=== PATIENT | female | born 1935 | race Caucasian/White ===

== ENCOUNTER 2018-11-21 13:48 | Inpatient (IN) | payer MEDICARE, OTHER ==
[~2018-11-21] VITALS: Ht 160 cm; Wt 50.8 kg
[2018-11-21 15:30] VITALS: BP 124/72
[2018-11-21] MEDS ORDERED: DOCUSATE SODIUM 283 MG/5 ML MINI-ENEMA PR PRN (17:15)
[2018-11-21] MEDS: ACETAMINOPHEN 325 MG TABLET PO PRN (18:51)
[2018-11-21] MEDS: SIMVASTATIN 20 MG TABLET PO SCH (21:11)
[2018-11-21] MEDS: SENNA 187 MG TABLET PO SCH (21:11)
[2018-11-21] MEDS: FLUDROCORTISONE ACETATE 0.1 MG TABLET PO SCH (21:11)
[2018-11-21] MEDS: DOCUSATE SODIUM 100 MG CAPSULE PO SCH (21:11)
[2018-11-21] MEDS: LACOSAMIDE 100 MG TABLET PO SCH (21:11)
[2018-11-21] MEDS: LevETIRAcetam 100 MG/ML 5 ML SOLUTION UDCUP PO SCH (21:12)
[2018-11-22 01:04] VITALS: BP 135/72
[2018-11-22 06:58] LABS: BASOPHILS % (AUTO) 1.4 % (0.0-2.0); EOSINOPHILS % (AUTO) 1.8 % (1.0-6.0); HEMOGLOBIN 9.2 g/dL (12.0-16.0); LYMPHOCYTES # (AUTO) 0.6 K/uL (1.0-4.8); LYMPHOCYTES % (AUTO) 20.5 % (22.0-44.0); MEAN CORPUSCULAR HGB CONC 35.2 G/dL (31.0-37.0); MEAN CORPUSCULAR VOLUME 97 fL (80-100); MONOCYTES # (AUTO) 0.4 K/uL (0.1-1.0); MONOCYTES % (AUTO) 11.5 % (2.0-9.0); NEUTROPHILS % (AUTO) 64.8 % (40.0-70.0); PLATELET COUNT (AUTO) 296 K/uL (150-450); RED BLOOD CELL COUNT(AUTO) 2.69 MIL/uL (4.00-5.20); RED CELL DISTRIBUTION WIDTH 14.3 % (11.5-14.5)
[2018-11-22 07:13] LABS: ALANINE AMINOTRANSFERASE 51 U/L (12-78); ALBUMIN 2.9 g/dL (3.4-5.0); ALKALINE PHOSPHATASE 80 U/L (46-116); ANION GAP 6 mmol/L (8-16); ASPARTATE AMINOTRANSFERASE 40 U/L (15-37); BILIRUBIN,TOTAL 0.6 mg/dL (0.1-1.0); CARBON DIOXIDE 29 mmol/L (22-29); CHLORIDE 104 mmol/L (98-107); CREATININE 0.52 mg/dL (0.60-1.30); GLUCOSE,RANDOM 122 mg/dL (70-110); POTASSIUM 3.5 mmol/L (3.5-5.1); SODIUM SERUM 139 mmol/L (136-145); TOTAL PROTEIN, SERUM 7.1 g/dL (6.4-8.2); UREA NITROGEN, BLOOD 18 mg/dL (7-18)
[2018-11-22 07:14] LABS: GLOMERULAR FILTR. RATE CALC > 60 mL/min (>60)
[2018-11-22 09:00] VITALS: BP 132/98
[2018-11-22] MEDS: MULTIVITAMINS, THERAPEUTIC TABLET PO SCH (09:07)
[2018-11-22] MEDS: POLYETHYLENE GLYCOL 3350 17 GM PACKET PO SCH (09:07)
[2018-11-22] MEDS: DOCUSATE SODIUM 100 MG CAPSULE PO SCH ×2 (09:07→20:40)
[2018-11-22] MEDS: AmLODIPine BESYLATE 2.5 MG TABLET PO SCH (09:08)
[2018-11-22] MEDS: LACOSAMIDE 100 MG TABLET PO SCH ×2 (09:08→20:40)
[2018-11-22] MEDS: DILTIAZEM HCL CD 120 MG ER CAPSULE PO SCH (09:09)
[2018-11-22] MEDS: LevETIRAcetam 100 MG/ML 5 ML SOLUTION UDCUP PO SCH ×2 (09:09→20:40)
[2018-11-22] MEDS: PANTOPRAZOLE SODIUM 40 MG DR TABLET PO SCH (09:14)
[2018-11-22] MEDS: FLUDROCORTISONE ACETATE 0.1 MG TABLET PO SCH ×2 (10:34→20:40)
[2018-11-22] MEDS ORDERED: FOSI20TA98 PO (13:36)
[2018-11-22] MEDS ORDERED: SIMV-260 PO (13:36)
[2018-11-22] MEDS ORDERED: PANT40TA25 PO (13:36)
[2018-11-22] MEDS ORDERED: AMLO2.5T4 PO (13:36)
[2018-11-22] MEDS ORDERED: CA C1TAB95 PO (13:36)
[2018-11-22 15:22] VITALS: BP 122/68
[2018-11-22] MEDS: SIMVASTATIN 20 MG TABLET PO SCH (20:40)
[2018-11-22] MEDS: SENNA 187 MG TABLET PO SCH (20:40)
[2018-11-22 21:04] LABS: APPEARANCE,URINE CLOUDY (CLEAR); BILIRUBIN,URINE NEGATIVE (NEGATIVE); GLUCOSE, URINE (UA) NEGATIVE (NEGATIVE); KETONES,URINE NEGATIVE (NEGATIVE); LEUKOCYTE ESTERASE ,URINE MODERATE (NEGATIVE); OCCULT BLOOD,URINE SMALL (NEGATIVE); PROTEIN,URINE NEGATIVE (NEGATIVE)
[2018-11-22 21:09] LABS: BACTERIA,URINE Many /HPF (None Seen); NITRATE,URINE POSITIVE (NEGATIVE); SQUAMOUS EPITHELIAL CELL,UR Moderate /LPF (None Seen); WBC,URINE 26-50 /HPF (0-5)
[2018-11-23] VITALS: BP 130/70
[2018-11-23 08:01] VITALS: BP 133/72
[2018-11-23] MEDS: DILTIAZEM HCL CD 120 MG ER CAPSULE PO SCH (08:02)
[2018-11-23] MEDS: POLYETHYLENE GLYCOL 3350 17 GM PACKET PO SCH (08:02)
[2018-11-23] MEDS: DOCUSATE SODIUM 100 MG CAPSULE PO SCH ×2 (08:03→20:07)
[2018-11-23] MEDS: LACOSAMIDE 100 MG TABLET PO SCH ×2 (08:03→20:07)
[2018-11-23] MEDS: MULTIVITAMINS, THERAPEUTIC TABLET PO SCH (08:03)
[2018-11-23] MEDS: LevETIRAcetam 100 MG/ML 5 ML SOLUTION UDCUP PO SCH ×2 (08:03→20:06)
[2018-11-23] MEDS: AmLODIPine BESYLATE 2.5 MG TABLET PO SCH (08:03)
[2018-11-23] MEDS: PANTOPRAZOLE SODIUM 40 MG DR TABLET PO SCH (08:03)
[2018-11-23] MEDS: FLUDROCORTISONE ACETATE 0.1 MG TABLET PO SCH ×2 (08:04→20:07)
[2018-11-23 15:57] VITALS: BP 109/64
[2018-11-23] MEDS ORDERED: MAGNESIUM HYDROXIDE SUSPENSION 30 ML UDCUP PO PRN (20:00)
[2018-11-23] MEDS: SIMVASTATIN 20 MG TABLET PO SCH (20:06)
[2018-11-23] MEDS: SENNA 187 MG TABLET PO SCH (20:07)
[2018-11-24] VITALS: BP 128/55
[2018-11-24 07:47] VITALS: BP 134/79
[2018-11-24] MEDS: LevETIRAcetam 100 MG/ML 5 ML SOLUTION UDCUP PO SCH ×2 (07:48→21:01)
[2018-11-24] MEDS: DOCUSATE SODIUM 100 MG CAPSULE PO SCH ×2 (07:48→21:02)
[2018-11-24] MEDS: FLUDROCORTISONE ACETATE 0.1 MG TABLET PO SCH ×2 (07:48→21:01)
[2018-11-24] MEDS: LACOSAMIDE 100 MG TABLET PO SCH ×2 (07:48→21:02)
[2018-11-24] MEDS: PANTOPRAZOLE SODIUM 40 MG DR TABLET PO SCH (07:48)
[2018-11-24] MEDS: SULFAMETHOX/TRIMETH DS 800-160 MG/TABLET PO SCH ×2 (07:48→21:02)
[2018-11-24] MEDS: POLYETHYLENE GLYCOL 3350 17 GM PACKET PO SCH (07:49)
[2018-11-24] MEDS: DILTIAZEM HCL CD 120 MG ER CAPSULE PO SCH (07:49)
[2018-11-24] MEDS: MULTIVITAMINS, THERAPEUTIC TABLET PO SCH (07:49)
[2018-11-24] MEDS: AmLODIPine BESYLATE 2.5 MG TABLET PO SCH (07:49)
[2018-11-24] MEDS ORDERED: MULTIVITAMINS WITH MINERALS, THERAPEUTIC TABLET PO SCH (09:00)
[2018-11-24 16:00] VITALS: BP 109/66
[2018-11-24] MEDS: SIMVASTATIN 20 MG TABLET PO SCH (21:01)
[2018-11-24] MEDS: SENNA 187 MG TABLET PO SCH (21:02)
[2018-11-24] MEDS: MELATONIN 3 MG TABLET PO PRN (22:02)
[2018-11-25] VITALS: BP 118/71
[2018-11-25 07:51] VITALS: BP 104/59
[2018-11-25] MEDS: POLYETHYLENE GLYCOL 3350 17 GM PACKET PO SCH (08:05)
[2018-11-25] MEDS: SULFAMETHOX/TRIMETH DS 800-160 MG/TABLET PO SCH ×2 (08:06→21:23)
[2018-11-25] MEDS: FLUDROCORTISONE ACETATE 0.1 MG TABLET PO SCH ×2 (08:06→21:23)
[2018-11-25] MEDS: AmLODIPine BESYLATE 2.5 MG TABLET PO SCH (08:06)
[2018-11-25] MEDS: PANTOPRAZOLE SODIUM 40 MG DR TABLET PO SCH (08:06)
[2018-11-25] MEDS: DOCUSATE SODIUM 100 MG CAPSULE PO SCH ×2 (08:06→21:23)
[2018-11-25] MEDS: MULTIVITAMINS, THERAPEUTIC TABLET PO SCH (08:06)
[2018-11-25] MEDS: DILTIAZEM HCL CD 120 MG ER CAPSULE PO SCH (08:07)
[2018-11-25] MEDS: LevETIRAcetam 100 MG/ML 5 ML SOLUTION UDCUP PO SCH ×2 (08:07→21:23)
[2018-11-25] MEDS: LACOSAMIDE 100 MG TABLET PO SCH ×2 (08:07→21:23)
[2018-11-25 16:03] VITALS: BP 121/77
[2018-11-25] MEDS: SENNA 187 MG TABLET PO SCH (21:23)
[2018-11-25] MEDS: SIMVASTATIN 20 MG TABLET PO SCH (21:23)
[2018-11-25] MEDS: MELATONIN 3 MG TABLET PO PRN (21:23)
[2018-11-26] VITALS: BP 128/67
[2018-11-26 07:42] VITALS: BP 121/70
[2018-11-26] MEDS: MULTIVITAMINS, THERAPEUTIC TABLET PO SCH (08:00)
[2018-11-26] MEDS: PANTOPRAZOLE SODIUM 40 MG DR TABLET PO SCH (08:00)
[2018-11-26] MEDS: FLUDROCORTISONE ACETATE 0.1 MG TABLET PO SCH ×2 (08:01→21:41)
[2018-11-26] MEDS: DILTIAZEM HCL CD 120 MG ER CAPSULE PO SCH (08:01)
[2018-11-26] MEDS: AmLODIPine BESYLATE 2.5 MG TABLET PO SCH (08:01)
[2018-11-26] MEDS: LACOSAMIDE 100 MG TABLET PO SCH ×2 (08:01→21:40)
[2018-11-26] MEDS: DOCUSATE SODIUM 100 MG CAPSULE PO SCH ×2 (08:01→21:41)
[2018-11-26] MEDS: LevETIRAcetam 100 MG/ML 5 ML SOLUTION UDCUP PO SCH ×2 (08:02→21:40)
[2018-11-26] MEDS: POLYETHYLENE GLYCOL 3350 17 GM PACKET PO SCH (09:00)
[2018-11-26] MEDS: NITROFURANTOIN/NITROFURAN MAC 100 MG CAPSULE [MACROBID] PO SCH ×2 (12:14→21:40)
[2018-11-26 15:46] VITALS: BP 128/60
[2018-11-26] MEDS: SENNA 187 MG TABLET PO SCH (21:40)
[2018-11-26] MEDS: SIMVASTATIN 20 MG TABLET PO SCH (21:40)
[2018-11-26] MEDS: MELATONIN 3 MG TABLET PO PRN (23:30)
[2018-11-27] VITALS: BP 140/79
[2018-11-27 07:37] VITALS: BP 143/88
[2018-11-27] MEDS: LevETIRAcetam 100 MG/ML 5 ML SOLUTION UDCUP PO SCH ×2 (08:03→21:32)
[2018-11-27] MEDS: DOCUSATE SODIUM 100 MG CAPSULE PO SCH ×2 (08:03→21:32)
[2018-11-27] MEDS: POLYETHYLENE GLYCOL 3350 17 GM PACKET PO SCH (08:03)
[2018-11-27] MEDS: AmLODIPine BESYLATE 2.5 MG TABLET PO SCH (08:04)
[2018-11-27] MEDS: LACOSAMIDE 100 MG TABLET PO SCH ×2 (08:04→21:33)
[2018-11-27] MEDS: DILTIAZEM HCL CD 120 MG ER CAPSULE PO SCH (08:04)
[2018-11-27] MEDS: MULTIVITAMINS, THERAPEUTIC TABLET PO SCH (08:04)
[2018-11-27] MEDS: PANTOPRAZOLE SODIUM 40 MG DR TABLET PO SCH (08:04)
[2018-11-27] MEDS: FLUDROCORTISONE ACETATE 0.1 MG TABLET PO SCH ×2 (08:04→21:33)
[2018-11-27] MEDS: NITROFURANTOIN/NITROFURAN MAC 100 MG CAPSULE [MACROBID] PO SCH ×2 (08:05→21:32)
[2018-11-27 15:33] VITALS: BP 105/62
[2018-11-27] MEDS: METOPROLOL TARTRATE 25 MG TABLET PO SCH (21:32)
[2018-11-27] MEDS: SENNA 187 MG TABLET PO SCH (21:33)
[2018-11-27] MEDS: SIMVASTATIN 20 MG TABLET PO SCH (21:33)
[2018-11-27] MEDS: MELATONIN 3 MG TABLET PO PRN (21:51)
[2018-11-28] VITALS: BP 120/66
[2018-11-28 07:15] VITALS: BP 129/68
[2018-11-28] MEDS: POLYETHYLENE GLYCOL 3350 17 GM PACKET PO SCH (08:38)
[2018-11-28] MEDS: LevETIRAcetam 100 MG/ML 5 ML SOLUTION UDCUP PO SCH ×2 (08:39→21:07)
[2018-11-28] MEDS: DOCUSATE SODIUM 100 MG CAPSULE PO SCH ×2 (08:39→21:07)
[2018-11-28] MEDS: AmLODIPine BESYLATE 2.5 MG TABLET PO SCH (08:39)
[2018-11-28] MEDS: METOPROLOL TARTRATE 25 MG TABLET PO SCH ×2 (08:40→21:08)
[2018-11-28] MEDS: FLUDROCORTISONE ACETATE 0.1 MG TABLET PO SCH ×2 (08:40→21:08)
[2018-11-28] MEDS: NITROFURANTOIN/NITROFURAN MAC 100 MG CAPSULE [MACROBID] PO SCH ×2 (08:40→21:07)
[2018-11-28] MEDS: MULTIVITAMINS, THERAPEUTIC TABLET PO SCH (08:40)
[2018-11-28] MEDS: PANTOPRAZOLE SODIUM 40 MG DR TABLET PO SCH (08:40)
[2018-11-28] MEDS: LACOSAMIDE 100 MG TABLET PO SCH ×2 (08:41→21:07)
[2018-11-28 16:13] VITALS: BP 121/68
[2018-11-28] MEDS: MELATONIN 3 MG TABLET PO SCH (21:07)
[2018-11-28] MEDS: SENNA 187 MG TABLET PO SCH (21:07)
[2018-11-28] MEDS: SIMVASTATIN 20 MG TABLET PO SCH (21:07)
[2018-11-29] VITALS: BP 128/72
[2018-11-29 06:23] LABS: ANION GAP 5 mmol/L (8-16); CALCIUM, TOTAL 8.9 mg/dL (8.8-10.5); CARBON DIOXIDE 34 mmol/L (22-29); CHLORIDE 102 mmol/L (98-107); CREATININE 0.53 mg/dL (0.60-1.30); GLUCOSE,RANDOM 107 mg/dL (70-110); SODIUM SERUM 141 mmol/L (136-145); UREA NITROGEN, BLOOD 11 mg/dL (7-18)
[2018-11-29 06:49] LABS: GLOMERULAR FILTR. RATE CALC > 60 mL/min (>60); POTASSIUM 2.7 mmol/L (3.5-5.1)
[2018-11-29 07:32] VITALS: BP 127/73
[2018-11-29 07:32] LABS: BASOPHILS % (AUTO) 1.5 % (0.0-2.0); EOSINOPHILS % (AUTO) 1.9 % (1.0-6.0); HEMATOCRIT 29.4 % (36-46); HEMOGLOBIN 10.2 g/dL (12.0-16.0); LYMPHOCYTES # (AUTO) 0.9 K/uL (1.0-4.8); MEAN CORPUSCULAR HGB CONC 34.7 G/dL (31.0-37.0); MEAN CORPUSCULAR VOLUME 95 fL (80-100); MONOCYTES # (AUTO) 0.3 K/uL (0.1-1.0); MONOCYTES % (AUTO) 11.9 % (2.0-9.0); NEUTROPHILS % (AUTO) 43.7 % (40.0-70.0); PLATELET COUNT (AUTO) 245 K/uL (150-450); RED CELL DISTRIBUTION WIDTH 14.1 % (11.5-14.5)
[2018-11-29] MEDS: NITROFURANTOIN/NITROFURAN MAC 100 MG CAPSULE [MACROBID] PO SCH ×2 (07:52→21:04)
[2018-11-29] MEDS: LevETIRAcetam 100 MG/ML 5 ML SOLUTION UDCUP PO SCH ×2 (07:52→21:04)
[2018-11-29] MEDS: POLYETHYLENE GLYCOL 3350 17 GM PACKET PO SCH (07:52)
[2018-11-29] MEDS: DOCUSATE SODIUM 100 MG CAPSULE PO SCH ×2 (07:52→21:04)
[2018-11-29] MEDS: PANTOPRAZOLE SODIUM 40 MG DR TABLET PO SCH (07:53)
[2018-11-29] MEDS: FLUDROCORTISONE ACETATE 0.1 MG TABLET PO SCH ×2 (07:53→21:04)
[2018-11-29] MEDS: LACOSAMIDE 100 MG TABLET PO SCH ×2 (07:53→21:04)
[2018-11-29] MEDS: AmLODIPine BESYLATE 2.5 MG TABLET PO SCH (07:53)
[2018-11-29] MEDS: METOPROLOL TARTRATE 25 MG TABLET PO SCH ×2 (07:53→21:04)
[2018-11-29] MEDS: MULTIVITAMINS, THERAPEUTIC TABLET PO SCH (07:53)
[2018-11-29] MEDS ORDERED: SODIUM CHLORIDE 0.9% 250 ML IV ONE (09:26)
[2018-11-29] MEDS: POTASSIUM CHL 10 MEQ/WATER 50 ML IV PRN ×5 (10:14→23:10)
[2018-11-29] MEDS: 0.9% SODIUM CHLORIDE 10 ML SYRINGE IVP SCH ×2 (16:09→23:11)
[2018-11-29 17:59] VITALS: BP 102/66
[2018-11-29 21:02] VITALS: BP 129/78
[2018-11-29] MEDS: MELATONIN 3 MG TABLET PO SCH (21:04)
[2018-11-29] MEDS: SENNA 187 MG TABLET PO SCH (21:04)
[2018-11-29] MEDS: SIMVASTATIN 20 MG TABLET PO SCH (21:04)
[2018-11-30] MEDS: POTASSIUM CHL 10 MEQ/WATER 50 ML IV PRN ×2 (00:38→01:57)
[2018-11-30 01:40] VITALS: BP 129/79
[2018-11-30 05:56] LABS: EOSINOPHILS % (AUTO) 1.5 % (1.0-6.0); HEMATOCRIT 25.5 % (36-46); HEMOGLOBIN 8.9 g/dL (12.0-16.0); LYMPHOCYTES # (AUTO) 0.7 K/uL (1.0-4.8); LYMPHOCYTES % (AUTO) 26.6 % (22.0-44.0); MEAN CORPUSCULAR HEMOGLOBIN 32.7 pg (26.0-34.0); MEAN CORPUSCULAR VOLUME 94 fL (80-100); MONOCYTES # (AUTO) 0.3 K/uL (0.1-1.0); MONOCYTES % (AUTO) 12.2 % (2.0-9.0); NEUTROPHILS # (AUTO) 1.6 K/uL (1.8-7.7); NEUTROPHILS % (AUTO) 58.7 % (40.0-70.0); PLATELET COUNT (AUTO) 193 K/uL (150-450); RED BLOOD CELL COUNT(AUTO) 2.73 MIL/uL (4.00-5.20); RED CELL DISTRIBUTION WIDTH 14.1 % (11.5-14.5)
[2018-11-30 06:11] LABS: ANION GAP 5 mmol/L (8-16); CALCIUM, TOTAL 8.6 mg/dL (8.8-10.5); CARBON DIOXIDE 33 mmol/L (22-29); CHLORIDE 102 mmol/L (98-107); GLUCOSE,RANDOM 110 mg/dL (70-110); POTASSIUM 3.2 mmol/L (3.5-5.1); SODIUM SERUM 140 mmol/L (136-145); UREA NITROGEN, BLOOD 12 mg/dL (7-18)
[2018-11-30 06:50] LABS: GLOMERULAR FILTR. RATE CALC > 60 mL/min (>60)
[2018-11-30] MEDS: MULTIVITAMINS, THERAPEUTIC TABLET PO SCH (08:01)
[2018-11-30] MEDS: POTASSIUM CHLORIDE 20 MEQ ER TABLET PO PRN (08:01)
[2018-11-30] MEDS: LevETIRAcetam 100 MG/ML 5 ML SOLUTION UDCUP PO SCH ×2 (08:01→20:47)
[2018-11-30] MEDS: NITROFURANTOIN/NITROFURAN MAC 100 MG CAPSULE [MACROBID] PO SCH ×2 (08:01→20:47)
[2018-11-30] MEDS: PANTOPRAZOLE SODIUM 40 MG DR TABLET PO SCH (08:01)
[2018-11-30] MEDS: FLUDROCORTISONE ACETATE 0.1 MG TABLET PO SCH ×2 (08:01→20:47)
[2018-11-30] MEDS: LACOSAMIDE 100 MG TABLET PO SCH ×2 (08:02→20:48)
[2018-11-30] MEDS: AmLODIPine BESYLATE 2.5 MG TABLET PO SCH (08:02)
[2018-11-30] MEDS: METOPROLOL TARTRATE 25 MG TABLET PO SCH ×2 (08:06→20:47)
[2018-11-30] MEDS: DOCUSATE SODIUM 100 MG CAPSULE PO SCH ×2 (08:15→20:47)
[2018-11-30] MEDS: POLYETHYLENE GLYCOL 3350 17 GM PACKET PO SCH (08:15)
[2018-11-30] MEDS: 0.9% SODIUM CHLORIDE 10 ML SYRINGE IVP SCH ×3 (08:19→23:54)
[2018-11-30 08:26] VITALS: BP 118/78
[2018-11-30] MEDS ORDERED: POTASSIUM CHLORIDE 20 MEQ ER TABLET PO ONE (13:30)
[2018-11-30 16:04] VITALS: BP 118/68
[2018-11-30 20:45] VITALS: BP 124/71
[2018-11-30] MEDS: SIMVASTATIN 20 MG TABLET PO SCH (20:47)
[2018-11-30] MEDS: SENNA 187 MG TABLET PO SCH (20:47)
[2018-11-30] MEDS: MELATONIN 3 MG TABLET PO SCH (20:47)
[2018-12-01 03:30] VITALS: BP 148/71
[2018-12-01 07:30] VITALS: BP 135/76
[2018-12-01] MEDS: PANTOPRAZOLE SODIUM 40 MG DR TABLET PO SCH (07:54)
[2018-12-01] MEDS: METOPROLOL TARTRATE 25 MG TABLET PO SCH ×2 (07:54→21:15)
[2018-12-01] MEDS: MULTIVITAMINS, THERAPEUTIC TABLET PO SCH (07:54)
[2018-12-01] MEDS: FLUDROCORTISONE ACETATE 0.1 MG TABLET PO SCH ×2 (07:54→21:15)
[2018-12-01] MEDS: LevETIRAcetam 100 MG/ML 5 ML SOLUTION UDCUP PO SCH ×2 (07:54→21:15)
[2018-12-01] MEDS: AmLODIPine BESYLATE 2.5 MG TABLET PO SCH (07:54)
[2018-12-01] MEDS: 0.9% SODIUM CHLORIDE 10 ML SYRINGE IVP SCH ×3 (07:55→23:43)
[2018-12-01] MEDS: NITROFURANTOIN/NITROFURAN MAC 100 MG CAPSULE [MACROBID] PO SCH (07:55)
[2018-12-01] MEDS: LACOSAMIDE 100 MG TABLET PO SCH ×2 (07:55→21:15)
[2018-12-01] MEDS: POTASSIUM CHLORIDE 20 MEQ ER TABLET PO PRN (07:57)
[2018-12-01] MEDS: DOCUSATE SODIUM 100 MG CAPSULE PO SCH ×2 (09:00→21:15)
[2018-12-01] MEDS: POLYETHYLENE GLYCOL 3350 17 GM PACKET PO SCH (09:00)
[2018-12-01 16:15] VITALS: BP 137/70
[2018-12-01 21:14] VITALS: BP 144/85
[2018-12-01] MEDS: SENNA 187 MG TABLET PO SCH (21:15)
[2018-12-01] MEDS: SIMVASTATIN 20 MG TABLET PO SCH (21:15)
[2018-12-01] MEDS: MELATONIN 3 MG TABLET PO SCH (21:15)
[2018-12-02] VITALS: BP 133/67
[2018-12-02 05:54] LABS: HEMATOCRIT 25.6 % (36-46); HEMOGLOBIN 8.8 g/dL (12.0-16.0); LYMPHOCYTES # (AUTO) 0.7 K/uL (1.0-4.8); LYMPHOCYTES % (AUTO) 28.1 % (22.0-44.0); MEAN CORPUSCULAR HGB CONC 34.4 G/dL (31.0-37.0); MEAN CORPUSCULAR VOLUME 93 fL (80-100); MONOCYTES # (AUTO) 0.3 K/uL (0.1-1.0); MONOCYTES % (AUTO) 11.9 % (2.0-9.0); NEUTROPHILS # (AUTO) 1.5 K/uL (1.8-7.7); PLATELET COUNT (AUTO) 179 K/uL (150-450); RED BLOOD CELL COUNT(AUTO) 2.76 MIL/uL (4.00-5.20); RED CELL DISTRIBUTION WIDTH 14.7 % (11.5-14.5)
[2018-12-02 06:05] LABS: ANION GAP 5 mmol/L (8-16); CARBON DIOXIDE 32 mmol/L (22-29); CHLORIDE 102 mmol/L (98-107); CREATININE 0.57 mg/dL (0.60-1.30); GLOMERULAR FILTR. RATE CALC > 60 mL/min (>60); GLUCOSE,RANDOM 123 mg/dL (70-110); POTASSIUM 3.4 mmol/L (3.5-5.1); SODIUM SERUM 139 mmol/L (136-145); UREA NITROGEN, BLOOD 12 mg/dL (7-18)
[2018-12-02] MEDS: POLYETHYLENE GLYCOL 3350 17 GM PACKET PO SCH (08:01)
[2018-12-02] MEDS: MULTIVITAMINS, THERAPEUTIC TABLET PO SCH (08:01)
[2018-12-02] MEDS: LevETIRAcetam 100 MG/ML 5 ML SOLUTION UDCUP PO SCH ×2 (08:01→20:50)
[2018-12-02] MEDS: PANTOPRAZOLE SODIUM 40 MG DR TABLET PO SCH (08:02)
[2018-12-02] MEDS: DOCUSATE SODIUM 100 MG CAPSULE PO SCH ×2 (08:02→20:50)
[2018-12-02] MEDS: METOPROLOL TARTRATE 25 MG TABLET PO SCH ×2 (08:02→20:50)
[2018-12-02] MEDS: FLUDROCORTISONE ACETATE 0.1 MG TABLET PO SCH ×2 (08:02→20:50)
[2018-12-02] MEDS: POTASSIUM CHLORIDE 20 MEQ ER TABLET PO SCH (08:02)
[2018-12-02] MEDS: AmLODIPine BESYLATE 2.5 MG TABLET PO SCH (08:02)
[2018-12-02] MEDS: LACOSAMIDE 100 MG TABLET PO SCH ×2 (08:03→20:50)
[2018-12-02 08:53] VITALS: BP 132/89
[2018-12-02 16:12] VITALS: BP 129/68
[2018-12-02 20:46] VITALS: BP 122/57
[2018-12-02] MEDS: SIMVASTATIN 20 MG TABLET PO SCH (20:50)
[2018-12-02] MEDS: MELATONIN 3 MG TABLET PO SCH (20:50)
[2018-12-02] MEDS: SENNA 187 MG TABLET PO SCH (20:50)
[2018-12-03 00:20] VITALS: BP 127/77
[2018-12-03 07:28] VITALS: BP 138/56
[2018-12-03] MEDS: LACOSAMIDE 100 MG TABLET PO SCH ×2 (08:00→21:01)
[2018-12-03] MEDS: PANTOPRAZOLE SODIUM 40 MG DR TABLET PO SCH (08:00)
[2018-12-03] MEDS: METOPROLOL TARTRATE 25 MG TABLET PO SCH ×2 (08:00→21:00)
[2018-12-03] MEDS: DOCUSATE SODIUM 100 MG CAPSULE PO SCH ×2 (08:00→21:00)
[2018-12-03] MEDS: FLUDROCORTISONE ACETATE 0.1 MG TABLET PO SCH ×2 (08:00→21:00)
[2018-12-03] MEDS: POTASSIUM CHLORIDE 20 MEQ ER TABLET PO SCH (08:00)
[2018-12-03] MEDS: AmLODIPine BESYLATE 2.5 MG TABLET PO SCH (08:00)
[2018-12-03] MEDS: LevETIRAcetam 100 MG/ML 5 ML SOLUTION UDCUP PO SCH ×2 (08:00→20:59)
[2018-12-03] MEDS: MULTIVITAMINS, THERAPEUTIC TABLET PO SCH (08:01)
[2018-12-03] MEDS: POLYETHYLENE GLYCOL 3350 17 GM PACKET PO SCH (08:01)
[2018-12-03 16:00] VITALS: BP 109/57
[2018-12-03 20:19] LABS: APPEARANCE,URINE CLOUDY (CLEAR); BILIRUBIN,URINE NEGATIVE (NEGATIVE); GLUCOSE, URINE (UA) NEGATIVE (NEGATIVE); KETONES,URINE NEGATIVE (NEGATIVE); LEUKOCYTE ESTERASE ,URINE MODERATE (NEGATIVE); NITRATE,URINE POSITIVE (NEGATIVE); OCCULT BLOOD,URINE TRACE (NEGATIVE); PROTEIN,URINE NEGATIVE (NEGATIVE)
[2018-12-03 20:43] LABS: BACTERIA,URINE Many /HPF (None Seen); RBC,URINE 0-2 /HPF (0-2); SQUAMOUS EPITHELIAL CELL,UR Moderate /LPF (None Seen)
[2018-12-03 20:44] LABS: CALCIUM OXALATE CRYSTALS,UR Moderate /LPF (None Seen)
[2018-12-03 20:54] VITALS: BP 127/72
[2018-12-03] MEDS: MELATONIN 3 MG TABLET PO SCH (20:59)
[2018-12-03] MEDS: SENNA 187 MG TABLET PO SCH (21:00)
[2018-12-03] MEDS: SIMVASTATIN 20 MG TABLET PO SCH (21:00)
[2018-12-03 23:45] VITALS: BP 145/83
[2018-12-04] MEDS: ACETAMINOPHEN 325 MG TABLET PO PRN (00:52)
[2018-12-04 06:59] LABS: EOSINOPHILS % (AUTO) 1.8 % (1.0-6.0); HEMATOCRIT 25.7 % (36-46); LYMPHOCYTES # (AUTO) 0.9 K/uL (1.0-4.8); LYMPHOCYTES % (AUTO) 33.6 % (22.0-44.0); MEAN CORPUSCULAR VOLUME 91 fL (80-100); MONOCYTES # (AUTO) 0.3 K/uL (0.1-1.0); MONOCYTES % (AUTO) 11.3 % (2.0-9.0); NEUTROPHILS # (AUTO) 1.3 K/uL (1.8-7.7); NEUTROPHILS % (AUTO) 52.3 % (40.0-70.0); PLATELET COUNT (AUTO) 163 K/uL (150-450); RED BLOOD CELL COUNT(AUTO) 2.81 MIL/uL (4.00-5.20); RED CELL DISTRIBUTION WIDTH 14.6 % (11.5-14.5)
[2018-12-04 07:11] VITALS: BP 175/69
[2018-12-04 07:24] LABS: ANION GAP 3 mmol/L (8-16); CALCIUM, TOTAL 8.8 mg/dL (8.8-10.5); CARBON DIOXIDE 31 mmol/L (22-29); CHLORIDE 104 mmol/L (98-107); CREATININE 0.54 mg/dL (0.60-1.30); GLUCOSE,RANDOM 97 mg/dL (70-110); POTASSIUM 3.4 mmol/L (3.5-5.1); SODIUM SERUM 138 mmol/L (136-145); UREA NITROGEN, BLOOD 13 mg/dL (7-18)
[2018-12-04 07:28] LABS: GLOMERULAR FILTR. RATE CALC > 60 mL/min (>60)
[2018-12-04] MEDS: AmLODIPine BESYLATE 2.5 MG TABLET PO SCH (07:42)
[2018-12-04] MEDS: METOPROLOL TARTRATE 25 MG TABLET PO SCH ×2 (07:42→20:31)
[2018-12-04] MEDS: FLUDROCORTISONE ACETATE 0.1 MG TABLET PO SCH ×2 (07:42→20:31)
[2018-12-04] MEDS: LACOSAMIDE 100 MG TABLET PO SCH ×2 (07:42→20:31)
[2018-12-04] MEDS: POTASSIUM CHLORIDE 20 MEQ ER TABLET PO SCH (07:42)
[2018-12-04] MEDS: DOCUSATE SODIUM 100 MG CAPSULE PO SCH ×2 (07:42→20:31)
[2018-12-04] MEDS: PANTOPRAZOLE SODIUM 40 MG DR TABLET PO SCH (07:42)
[2018-12-04] MEDS: LevETIRAcetam 100 MG/ML 5 ML SOLUTION UDCUP PO SCH ×2 (07:43→20:31)
[2018-12-04] MEDS: POLYETHYLENE GLYCOL 3350 17 GM PACKET PO SCH (07:44)
[2018-12-04] MEDS: MULTIVITAMINS, THERAPEUTIC TABLET PO SCH (07:44)
[2018-12-04 10:05] VITALS: BP 106/72
[2018-12-04 16:01] VITALS: BP 107/60
[2018-12-04 20:27] VITALS: BP 120/64
[2018-12-04] MEDS: SENNA 187 MG TABLET PO SCH (20:31)
[2018-12-04] MEDS: MELATONIN 3 MG TABLET PO SCH (20:31)
[2018-12-04] MEDS: SIMVASTATIN 20 MG TABLET PO SCH (20:31)
[2018-12-05] VITALS: BP 123/70
[2018-12-05 07:45] VITALS: BP 147/83
[2018-12-05] MEDS: POLYETHYLENE GLYCOL 3350 17 GM PACKET PO SCH (07:59)
[2018-12-05] MEDS: LevETIRAcetam 100 MG/ML 5 ML SOLUTION UDCUP PO SCH ×2 (07:59→20:32)
[2018-12-05] MEDS: PANTOPRAZOLE SODIUM 40 MG DR TABLET PO SCH (08:00)
[2018-12-05] MEDS: METOPROLOL TARTRATE 25 MG TABLET PO SCH ×2 (08:00→20:32)
[2018-12-05] MEDS: DOCUSATE SODIUM 100 MG CAPSULE PO SCH ×2 (08:00→20:32)
[2018-12-05] MEDS: AmLODIPine BESYLATE 2.5 MG TABLET PO SCH (08:00)
[2018-12-05] MEDS: POTASSIUM CHLORIDE 20 MEQ ER TABLET PO SCH (08:01)
[2018-12-05] MEDS: MULTIVITAMINS, THERAPEUTIC TABLET PO SCH (08:01)
[2018-12-05] MEDS: FLUDROCORTISONE ACETATE 0.1 MG TABLET PO SCH ×2 (08:01→20:32)
[2018-12-05] MEDS: LACOSAMIDE 100 MG TABLET PO SCH ×2 (08:02→20:32)
[2018-12-05] MEDS ORDERED: POTASSIUM CHLORIDE 10 MEQ ER TABLET PO ONE (13:00)
[2018-12-05 16:01] VITALS: BP 110/69
[2018-12-05 20:30] VITALS: BP 149/76
[2018-12-05] MEDS: SIMVASTATIN 20 MG TABLET PO SCH (20:32)
[2018-12-05] MEDS: SENNA 187 MG TABLET PO SCH (20:32)
[2018-12-05] MEDS: MELATONIN 3 MG TABLET PO SCH (20:32)
[2018-12-06 00:41] VITALS: BP 149/69
[2018-12-06] MEDS: ACETAMINOPHEN 325 MG TABLET PO PRN (01:13)
[2018-12-06 08:05] VITALS: BP 148/72
[2018-12-06] MEDS: LevETIRAcetam 100 MG/ML 5 ML SOLUTION UDCUP PO SCH ×2 (08:06→22:00)
[2018-12-06] MEDS: POLYETHYLENE GLYCOL 3350 17 GM PACKET PO SCH (08:06)
[2018-12-06] MEDS: FLUDROCORTISONE ACETATE 0.1 MG TABLET PO SCH ×2 (08:07→22:00)
[2018-12-06] MEDS: LACOSAMIDE 100 MG TABLET PO SCH ×2 (08:07→22:00)
[2018-12-06] MEDS: AmLODIPine BESYLATE 2.5 MG TABLET PO SCH (08:07)
[2018-12-06] MEDS: PANTOPRAZOLE SODIUM 40 MG DR TABLET PO SCH (08:07)
[2018-12-06] MEDS: DOCUSATE SODIUM 100 MG CAPSULE PO SCH ×2 (08:07→22:00)
[2018-12-06] MEDS: POTASSIUM CHLORIDE 20 MEQ ER TABLET PO SCH (08:07)
[2018-12-06] MEDS: METOPROLOL TARTRATE 25 MG TABLET PO SCH ×2 (08:07→22:00)
[2018-12-06] MEDS: MULTIVITAMINS, THERAPEUTIC TABLET PO SCH (08:08)
[2018-12-06 08:33] LABS: ANION GAP 7 mmol/L (8-16); CARBON DIOXIDE 29 mmol/L (22-29); CHLORIDE 103 mmol/L (98-107); CREATININE 0.57 mg/dL (0.60-1.30); GLUCOSE,RANDOM 97 mg/dL (70-110); POTASSIUM 3.4 mmol/L (3.5-5.1); SODIUM SERUM 139 mmol/L (136-145); UREA NITROGEN, BLOOD 13 mg/dL (7-18)
[2018-12-06 08:34] LABS: BASOPHILS % (AUTO) 1.4 % (0.0-2.0); EOSINOPHILS % (AUTO) 1.9 % (1.0-6.0); HEMOGLOBIN 9.2 g/dL (12.0-16.0); LYMPHOCYTES # (AUTO) 0.7 K/uL (1.0-4.8); LYMPHOCYTES % (AUTO) 29.3 % (22.0-44.0); MEAN CORPUSCULAR HEMOGLOBIN 31.7 pg (26.0-34.0); MEAN CORPUSCULAR HGB CONC 34.3 G/dL (31.0-37.0); MEAN CORPUSCULAR VOLUME 93 fL (80-100); MONOCYTES # (AUTO) 0.2 K/uL (0.1-1.0); MONOCYTES % (AUTO) 9.7 % (2.0-9.0); NEUTROPHILS # (AUTO) 1.5 K/uL (1.8-7.7); NEUTROPHILS % (AUTO) 57.7 % (40.0-70.0); PLATELET COUNT (AUTO) 147 K/uL (150-450); RED BLOOD CELL COUNT(AUTO) 2.91 MIL/uL (4.00-5.20)
[2018-12-06 08:36] LABS: GLOMERULAR FILTR. RATE CALC > 60 mL/min (>60)
[2018-12-06] MEDS ORDERED: DSS100 PO (10:17)
[2018-12-06] MEDS ORDERED: LACO100 PO (10:23)
[2018-12-06] MEDS ORDERED: FLUD.1 PO (10:23)
[2018-12-06] MEDS ORDERED: METO25 PO (10:23)
[2018-12-06] MEDS ORDERED: SIMV-260 PO (10:23)
[2018-12-06] MEDS ORDERED: PANT40TA25 PO (10:23)
[2018-12-06] MEDS ORDERED: LEVE500T53 PO (10:23)
[2018-12-06] MEDS ORDERED: AMLO2.5T4 PO (10:23)
[2018-12-06] MEDS ORDERED: KDUR20 PO (10:23)
[2018-12-06] MEDS ORDERED: MELA3TAB66 PO (10:23)
[2018-12-06] MEDS ORDERED: MULT-1203 PO (10:23)
[2018-12-06] MEDS ORDERED: POLY17PO PO (10:23)
[2018-12-06 16:00] VITALS: BP 119/79
[2018-12-06 20:22] VITALS: BP 134/71
[2018-12-06] MEDS: MELATONIN 3 MG TABLET PO SCH (22:00)
[2018-12-06] MEDS: SIMVASTATIN 20 MG TABLET PO SCH (22:00)
[2018-12-06] MEDS: SENNA 187 MG TABLET PO SCH (22:01)
[2018-12-07] VITALS: BP 146/72
[2018-12-07] MEDS: ACETAMINOPHEN 325 MG TABLET PO PRN (02:25)
[2018-12-07 07:50] VITALS: BP 152/78
[2018-12-07] MEDS: POLYETHYLENE GLYCOL 3350 17 GM PACKET PO SCH (09:00)
[2018-12-07] MEDS: AmLODIPine BESYLATE 2.5 MG TABLET PO SCH (09:01)
[2018-12-07] MEDS: METOPROLOL TARTRATE 25 MG TABLET PO SCH (09:01)
[2018-12-07] MEDS: DOCUSATE SODIUM 100 MG CAPSULE PO SCH (09:01)
[2018-12-07] MEDS: FLUDROCORTISONE ACETATE 0.1 MG TABLET PO SCH (09:01)
[2018-12-07] MEDS: PANTOPRAZOLE SODIUM 40 MG DR TABLET PO SCH (09:01)
[2018-12-07] MEDS: MULTIVITAMINS, THERAPEUTIC TABLET PO SCH (09:02)
[2018-12-07] MEDS: LACOSAMIDE 100 MG TABLET PO SCH (09:02)
[2018-12-07] MEDS: POTASSIUM CHLORIDE 20 MEQ ER TABLET PO SCH (09:02)
[2018-12-07] MEDS: LevETIRAcetam 100 MG/ML 5 ML SOLUTION UDCUP PO SCH (09:03)
== END 2018-12-07 10:15 | disposition home or self-care (01) | DRG 87 ==
LOC: 2WR 13:48
PROVIDERS: ADMIT Physical Medicine & Rehabilitation; ATTEND Physical Medicine & Rehabilitation
DX: S06.5X0A Traumatic subdural hemorrhage without loss of consciousness, initial encounter (principal); D50.0 Iron deficiency anemia secondary to blood loss (chronic); E78.5 Hyperlipidemia, unspecified; F03.90 Unspecified dementia, unspecified severity, without behavioral disturbance, psychotic disturbance, mood disturbance, and anxiety; I10 Essential (primary) hypertension; I48.91 Unspecified atrial fibrillation; K21.9 Gastro-esophageal reflux disease without esophagitis; Z91.81 History of falling; Z82.49 Family history of ischemic heart disease and other diseases of the circulatory system; Z83.3 Family history of diabetes mellitus
CPT/HCPCS: 83735; 84132; 87081; 87086; 92507; 92523; 92526; 93005; 93306; 97110; 97112; 97116; 97163; 97167; 97530; 97535; 99366; J3480; J7050

== ENCOUNTER → 2019-02-20 | Outpatient (CLI) | payer MEDICARE, OTHER ==
[~2019-02-20] MED LIST: AMLO2.5T4 PO; DSS100 PO; FLUD.1 PO; KDUR20 PO; LACO100 PO; LEVE500T53 PO; MELA3TAB66 PO; METO25 PO; MULT-1203 PO; PANT40TA25 PO; POLY17PO PO; SIMV-260 PO
[2019-02-20 12:22] LABS: BASOPHILS % (AUTO) 0.7 % (0.0-2.0); EOSINOPHILS % (AUTO) 0.6 % (1.0-6.0); HEMATOCRIT 38.5 % (36-46); LYMPHOCYTES # (AUTO) 1.5 K/uL (1.0-4.8); LYMPHOCYTES % (AUTO) 35.1 % (22.0-44.0); MEAN CORPUSCULAR HEMOGLOBIN 30.1 pg (26.0-34.0); MEAN CORPUSCULAR HGB CONC 33.7 G/dL (31.0-37.0); MEAN CORPUSCULAR VOLUME 89 fL (80-100); MONOCYTES # (AUTO) 0.4 K/uL (0.1-1.0); NEUTROPHILS # (AUTO) 2.3 K/uL (1.8-7.7); NEUTROPHILS % (AUTO) 54.6 % (40.0-70.0); PLATELET COUNT (AUTO) 186 K/uL (150-450); RED BLOOD CELL COUNT(AUTO) 4.32 MIL/uL (4.00-5.20); RED CELL DISTRIBUTION WIDTH 18.2 % (11.5-14.5)
[2019-02-20 12:46] LABS: ANION GAP 9 mmol/L (8-16); CALCIUM, TOTAL 9.6 mg/dL (8.8-10.5); CARBON DIOXIDE 30 mmol/L (22-29); CHLORIDE 101 mmol/L (98-107); CREATININE 0.69 mg/dL (0.60-1.30); GLUCOSE,RANDOM 96 mg/dL (70-110); POTASSIUM 3.2 mmol/L (3.5-5.1); SODIUM SERUM 140 mmol/L (136-145); UREA NITROGEN, BLOOD 5 mg/dL (7-18)
[2019-02-20 12:48] LABS: GLOMERULAR FILTR. RATE CALC > 60 mL/min (>60)
== END | disposition home or self-care (01) ==
LOC: LABPV 11:10
PROVIDERS: ATTEND Physical Medicine & Rehabilitation
DX: G40.909 Epilepsy, unspecified, not intractable, without status epilepticus (principal); R25.2 Cramp and spasm; I10 Essential (primary) hypertension; E78.5 Hyperlipidemia, unspecified; K21.9 Gastro-esophageal reflux disease without esophagitis
CPT/HCPCS: 83735

== ENCOUNTER → 2019-03-05 | Outpatient (CLI) | payer MEDICARE, OTHER | END | disposition home or self-care (01) | LOC: LABPV 10:27 | PROVIDERS: ATTEND Physical Medicine & Rehabilitation | DX: E78.6 Lipoprotein deficiency (principal); R25.2 Cramp and spasm | CPT/HCPCS: 83735 ==